=== PATIENT | male | born 1960 | race Hispanic/Latino ===

== ENCOUNTER 2018-08-29 05:50 | Day surgery (SDC) | payer OTHER ==
[2018-08-27 14:11] LABS: APPEARANCE,URINE Turbid (CLEAR); BILIRUBIN,URINE Negative (NEGATIVE); COLOR,URINE Dark Yellow (YELLOW); GLUCOSE, URINE (UA) Negative (NEGATIVE); KETONES,URINE Trace mg/dL (NEGATIVE); LEUKOCYTE ESTERASE ,URINE Negative (NEGATIVE); NITRATE,URINE Negative (NEGATIVE); OCCULT BLOOD,URINE Negative (NEGATIVE); PH,URINE 5.5 (5.0-8.0); PROTEIN,URINE Negative (NEGATIVE)
[2018-08-27 14:11] LABS: BASOPHILS % (AUTO) 0.6 % (0.0-5.0); EOSINOPHILS % (AUTO) 5.4 % (0.0-8.0); HEMATOCRIT 48.3 % (42-54); LYMPHOCYTES % (AUTO) 25.6 % (21.0-51.0); MEAN CORPUSCULAR HEMOGLOBIN 36.7 pg (27.0-33.0); MEAN CORPUSCULAR HGB CONC 34.6 g/dL (32.0-36.0); MEAN CORPUSCULAR VOLUME 105.9 fL (79-99); NEUTROPHILS % (AUTO) 54.4 % (40.0-77.0); PLATELET COUNT (AUTO) 162 K/uL (130-400); RED BLOOD CELL COUNT(AUTO) 4.56 MIL/uL (4.50-6.20); WHITE BLOOD COUNT (AUTO) 7.8 K/uL (4.8-10.8)
[2018-08-27 14:28] LABS: BACTERIA,URINE Rare /HPF (None Seen); RBC,URINE None Seen /HPF (0-1); SQUAMOUS EPITHELIAL CELL,UR Rare /HPF (0-2); WBC,URINE 0-1 /HPF (0-1)
[2018-08-27 14:39] VITALS: BP 157/84
[2018-08-29] VITALS (17 sets, daily range): BP systolic 106–162; BP diastolic 56–105
[~2018-08-29] VITALS: Ht 175.3 cm; Wt 86.5 kg
[2018-08-29] MEDS ORDERED: LACTATED RINGERS 1000ML 1,000 ML IV ONE (06:54)
--- NOTE | 2018-08-29 07:20 | NUR ---
NEUROLOGY ASSESSMENT: PATIENT STATED DOES NOT HAVE DEMENTIA. STATED JUST FORGETS SOME THINGS LIKE EVERYONE ELSE. WAS ABLE TO ANSWER MY QUESTIONS WITHOUT ANY HESITATION OR PROBLEMS. Addendum: 08/29/18 at 0721 by HAYDEE FERMIN RN RN Amended: Links added.
[2018-08-29] MEDS ORDERED: PROPOFOL 10 MG/ML 20ML VIAL IV ONE ×2 (07:47→07:53)
[2018-08-29] MEDS ORDERED: MIDAZOLAM HCL 1 MG/ML 2ML VIAL ONE ×2 (07:47→09:15)
[2018-08-29] MEDS ORDERED: ROCURONIUM 10MG/1ML SYR 10 MG/ML ML ONE ×2 (07:47→07:54)
[2018-08-29] MEDS ORDERED: LIDOCAINE PF 2% 5ML ABBOJECT ONE ×2 (07:47→07:53)
[2018-08-29] MEDS ORDERED: ONDANSETRON HCL 4 MG/2 ML VIAL ONE (07:47)
[2018-08-29] MEDS ORDERED: GLYCOPYRROLATE 1 MG/5 ML SYRINGE ONE (07:47)
[2018-08-29] MEDS ORDERED: DEXAMETHASONE SOD PHOSPHATE 10MG/ML 1ML VIAL ONE (07:47)
[2018-08-29] MEDS ORDERED: BUPIVACAINE/PF 0.25% 30ML VIAL IJ ONE (07:48)
[2018-08-29] MEDS ORDERED: FENTANYL CITRATE PF 50 MCG/1 ML 2ML VIAL ONE ×2 (07:48→08:05)
[2018-08-29] MEDS ORDERED: SUCCINYLCHOLINE 200MG/10ML SYR ONE (07:53)
[2018-08-29] MEDS ORDERED: NEOSTIGMINE 5MG/5ML SYR IV ONE (09:11)
[2018-08-29] MEDS ORDERED: MORPHINE SULFATE 4 MG/1ML SYG ONE (09:27)
[2018-08-29] MEDS ORDERED: KETOROLAC TROMETHAMINE 30MG/ML ONE (09:27)
--- NOTE | 2018-08-29 10:36 | NUR ---
DC DC INSTRUCTIONS GIVEN TO PT/ SPOUSE WITH RX, INSTRUCTED TO F/U WITH DR. URBINA , DRESSING TO UMBILICAL AREA DRY AND INTACT, PT STABLE . VS STABLE PATIENT WAITING FOR SECURITY TO GIVE HIS CLOTHES CHANGE AND GO HOME WITH SPOUSE,NO PIV, CATHETER WAS INTACT ON REMOVAL. SITE ASYMTOMATIC.
== END 2018-08-29 10:50 | disposition home or self-care (01) ==
LOC: DAH 05:50
PROVIDERS: ATTEND Surgery
DX: K42.9 Umbilical hernia without obstruction or gangrene (principal); Z98.890 Other specified postprocedural states; Z79.899 Other long term (current) drug therapy; I10 Essential (primary) hypertension; F03.90 Unspecified dementia, unspecified severity, without behavioral disturbance, psychotic disturbance, mood disturbance, and anxiety
CPT/HCPCS: 36415; 49585; 81001; 85025; A4450; A4452; A4606; A4930; J0330; J1100; J1885; J2001 ×2; J2250 ×2; J2270; J2405; J2704 ×2; J2710; J3010 ×2; J3490 ×2; J7120